=== PATIENT | female | born 1975 | race Caucasian/White ===

== ENCOUNTER → 2017-04-21 | Outpatient (CLI) | payer OTHER ==
[~2017-04-21] MED LIST: BCPILLS PO; METH4PAK4 PO; MULT-240 PO; NORG1TAB19 PO; ONDA4TAB10 SL; OXYC1TAB3 PO; TAMS0.4C38 PO
== END | disposition home or self-care (01) ==
LOC: C.PAPS 09:59
PROVIDERS: ATTEND Obstetrics & Gynecology
DX: Z12.4 Encounter for screening for malignant neoplasm of cervix (principal); R87.616 Satisfactory cervical smear but lacking transformation zone

== ENCOUNTER → 2017-05-13 | Outpatient (CLI) | payer OTHER ==
--- NOTE | 2017-05-14 13:27 | MAMMOGRAPHY REPORT ---
BILATERAL DIGITAL SCREENING MAMMOGRAM TOMOSYNTHESIS WITH CAD: 05/13/2017 CLINICAL HISTORY: Routine screening. Patient has no complaints. TECHNIQUE: Breast tomosynthesis in addition to standard 2D mammography was performed. Current study was also evaluated with a Computer Aided Detection (CAD) system. COMPARISON: No prior exams were available for comparison. BREAST COMPOSITION: There are scattered areas of fibroglandular density in both breasts. FINDINGS: There is an 8 mm lobulated equal density mass seen within the right medial breast at appro ximately 3:00, which has a possible central fat density hilum on the MLO tomosynthesis images and may represent an intramammary lymph node although spot compression tomosynthesis views and possible [place] [facility] ultrasound are recommended for further evaluation. The remainder of both breasts are negative, without suspicious masses, calcifications, or areas of ar chitectural distortion noted. IMPRESSION: ACR BI-RADS CATEGORY 0: INCOMPLETE EVALUATION: NEED ADDITIONAL IMAGING EVALUATION Right breast mass, for which additional imaging evaluation is recommended. The patient will be mckeon d to schedule an appointment. Approximately 10% of breast cancers are not detected with mammography. A negative mammographic report should not delay biopsy if a clinically suggestive mass is present. Radha Saunders M.D. ah/:05/14/2017 07:32:41 Reinforcing Bar Setter: Chelita BAILEY(Nayeli)(Amy)(JUS), [facility] letter sent: Addl Imaging 0 BI-RADS Code: ACR BI-RADS Category 0: Incomplete Evaluation: Need Additional Imaging Evaluation
== END | disposition home or self-care (01) ==
LOC: C.MAMM 12:56
PROVIDERS: ATTEND Obstetrics & Gynecology
DX: Z12.31 Encounter for screening mammogram for malignant neoplasm of breast (principal); N63 Unspecified lump in breast

== ENCOUNTER → 2017-05-24 | Outpatient (CLI) | payer OTHER ==
--- NOTE | 2017-05-24 13:16 | MAMMOGRAPHY REPORT ---
UNILATERAL RIGHT DIGITAL DIAGNOSTIC MAMMOGRAM TOMOSYNTHESIS AND TARGETED RIGHT ULTRASOUND: 05/24/2017 CLINICAL HISTORY: 42 year-old woman called back from baseline screening mammogram for a lobulated mas s in the lower inner quadrant of the right breast. No family history of breast cancer. TECHNIQUE: Spot compression CC and MLO 2-D digital and tomosynthesis images were obtained. COMPARISON: Comparison is made to exam dated: 05/13/2017 mammogram - [facility]. BREAST COMPOSITION: There are scattered areas of fibroglandular density in the right breast. FINDINGS: Additional spot compression views of the right lower inner quadrant and corresponding myrtle synthesis images demonstrate persistence of a non-circumscribed 6.1 x 6.6 x 5.9 mm mass in the lower inner middle one third of the right breast. No associated calcification or architectural distortion. Further evaluation with ultrasound was performed. Real-time high-resolution ultrasound was performed throughout the right lower inner quadrant includin g the 7:00 axis. However, no discrete solid or cystic mass was identified. IMPRESSION: ACR BI-RADS CATEGORY 4B: INTERMEDIATE SUSPICION FOR MALIGNANCY, TARGETED ULTRASOUND ACR BI-RADS CATEGORY 4B: INTERMEDIATE SUSPICION FOR MALIGNANCY There is a persistent non-circumscribed 6.6 mm mass in the right lower inner quadrant, without sonogr aphic correlate identified. This mass remains indeterminate and definitive characterization with [facility] guided biopsy is recommended. These results and recommendations were discussed with the patient at the time of the exam. She tenta tively scheduled the right breast stereotactic biopsy prior to leaving our department. Approximately 10% of breast cancers are not detected with mammography. A negative mammographic report should not delay biopsy if a clinically suggestive mass is present. Jaye Middleton M.D. ay/:05/24/2017 12:14:29 Emergency Medicine Physician Assistant: Vangie BAILEY(Nayeli)(Amy), [facility] letter sent: Abnormal 4/5 BI-RADS Code: ACR BI-RADS Category 4B: Intermediate Suspicion For Malignancy Ultrasound BI-RADS: ACR BI-RADS Category 4B: Intermediate Suspicion For Malignancy
== END | disposition home or self-care (01) ==
LOC: C.MAMM 10:55
PROVIDERS: ATTEND Obstetrics & Gynecology
DX: N63 Unspecified lump in breast (principal)

== ENCOUNTER → 2017-06-03 | Outpatient (CLI) | payer OTHER ==
--- NOTE | 2017-06-03 13:21 | Discharge Instructions ---
Discharge Instructions Procedure Procedure Date: Jun 03, 2017. Reason for visit: Right Mass. Discharge Discharge Date: Jun 03, 2017. Discharge Diagnosis: status post breast biopsy Instructions Activity Recommendations: Additional Limitations (see below) Return to School/Work: no limitations Recommended Home Diet: No Limitations Provider Instructions: ACTIVITY RECOMMENDATIONS: * No lifting, pushing, pulling or exercising the affected side for three days. RETURN TO SCHOOL/WORK: * You may return to work/school after the procedure, but do not perform any strenuous activities for 24 to 48 hours. MEDICATIONS: * Tylenol (two 325 mg) every four to six hours if needed for mild pain (if not allergic to Tylenol). DIET: * Resume previous diet. SPECIAL CARE INSTRUCTIONS: * Keep biopsy site dry for 24 hours. May shower after 24 hours, but do not soak (bathe) incision. * May remove Tegaderm (plastic patch) tomorrow AFTER showering. * Leave the steri-strips on for one week. Allow the steri-strips to fall off by themselves. If not off after one week, you may remove them. You may place a Bandaid crosswise over the strips, if desired. * Apply ice 10 minutes on and 10 minutes off as needed. * Wear a bra at bedtime to sleep more comfortably for 2-3 days. * Your referring physician should have the results after approximately 5 to 7 business days. * Call for unusual bleeding, fever, drainage, etc or if you have any questions call during normal business hours or after hours call Dr Saunders, . FOLLOW UP VISIT: Follow-up with Referring Physician as scheduled. Allergies Coded Allergies: No Known Allergies (Verified , 11/12/11) Mini Dave Recommendations: Call your doctor if: * Temperature above 101 degrees * Pain not relieved by pain medicine ordered * There is increased drainage or redness from any incision * You have any unanswered questions or concerns. Your Doctors Instructions noted above were prepared by provider Radha Saunders. Patient Signature Section: Patient Instructions Signature Page Razia Graves Patient (or Guardian) Signature/Date: I have read and understand the instructions given to me by my caregivers. Caregiver/RN/Doctor Signature/Date: The above-named patient and/or guardian has received patient instructions on this date. + Original Patient Signature Page (only) stays with chart. Please make copy for patient.
--- NOTE | 2017-06-03 16:19 | MAMMOGRAPHY REPORT ---
UNILATERAL RIGHT DIGITAL DIAGNOSTIC MAMMOGRAM TOMOSYNTHESIS: 06/03/2017 CLINICAL HISTORY: Status post right breast stereotactic biopsy. TECHNIQUE: Breast tomosynthesis in addition to standard 2D mammography was performed. A preprocedur al right CC 2-D view was obtained. Postprocedural right CC and ML tomosynthesis images including C v iews were obtained. COMPARISON: Comparison is made to exams dated: 06/03/2017 stereotactic biopsy, 05/24/2017 mammogram, ultrasound, and 05/13/2017 mammogram - [facility]. BREAST COMPOSITION: There are scattered areas of fibroglandular density in the right breast. FINDINGS: A preprocedural right cc view was obtained for biopsy planning purposes. Postprocedural i mages demonstrate a new biopsy marker clip in the expected location of the biopsied mass in the right lower inner quadrant. No significant postbiopsy hematoma is seen. IMPRESSION: POST PROCEDURE IMAGING FOR MARKER PLACEMENT New biopsy marker clip status post stereotactic biopsy of right lower inner quadrant breast mass. Pa thology results are pending. Pending benign pathology results, recommend follow-up diagnostic tomosy nthesis mammograms of the right breast in 6 months. Approximately 10% of breast cancers are not detected with mammography. A negative mammographic report should not delay biopsy if a clinically suggestive mass is present. Radha Saunders M.D. ah/:06/03/2017 13:48:17 Room Manager: Marguerite LOPEZ)(Amy), [facility] BI-RADS Code: Post Procedure Imaging For Marker Placement
--- NOTE | 2017-06-07 09:13 | MAMMOGRAPHY REPORT ---
THIS REPORT HAS BEEN AMENDED. STEREOTACTIC GUIDED BIOPSY RIGHT BREAST: 06/03/2017 CLINICAL HISTORY: Indeterminate mass in the right lower inner quadrant. PATIENT CONSENT: The procedure, risks, benefits, and alternatives of stereotactic biopsy with clip pl acement were discussed with the patient, and verbal and written consent was obtained. A timeout was performed immediately prior to the procedure. PROCEDURE DESCRIPTION: With stereotactic guidance, aseptic technique, and lidocaine as a local anesth etic (1% lidocaine to anesthetize the skin and 1% lidocaine with epinephrine to anesthetize the deepe r tissues), the mass of concern in the right lower inner quadrant was sampled multiple times with a 9 -gauge vacuum-assisted biopsy needle ([employer]). The path of approach was caudocranial. A metall ic marker clip was placed at the biopsy site. This was confirmed on postprocedure mammograms. Direc t pressure was applied at the biopsy site and hemostasis was readily achieved. The patient tolerated the procedure without complication. She was given wound care instructions. COMPARISON: Comparison is made to exams dated: 05/24/2017 mammogram, 05/24/2017 ultrasound, and 017 mammogram - [facility]. IMPRESSION: STEREOTACTIC GUIDED BIOPSY Stereotactic biopsy of right lower inner quadrant breast mass, with clip placement. The patient will receive pathology results from her referring provider. Pending benign pathology results, recommend follow-up diagnostic tomosynthesis mammograms of the right breast in 6 months. Radha Saunders M.D. ah/:06/03/2017 13:23:15 Security Officer: Marguerite BAILEY(Nayeli)(Amy), [facility] AMENDMENT: 06/09/2017 Radha Saunders M.D. The pathology from right breast stereotactic biopsy was reviewed on 06/09/2017. The pathology shows f ibrocystic change, which is concordant with the imaging findings. Recommend follow-up diagnostic lillian osynthesis mammograms of the right breast in 6 months.
== END | disposition home or self-care (01) ==
LOC: C.MAMM 12:45
PROVIDERS: ATTEND Obstetrics & Gynecology
DX: N63 Unspecified lump in breast (principal)

== ENCOUNTER 2017-07-29 05:22 | Emergency (ER) | payer OTHER ==
[~2017-07-29] VITALS: Ht 172.7 cm; Wt 115.4 kg
[~2017-07-29 05:22] MED LIST changes: -NORG1TAB19 PO; -ONDA4TAB10 SL; -OXYC1TAB3 PO; -TAMS0.4C38 PO
[2017-07-29 05:23] VITALS: TEMP 36.6; Ht 172.7 cm; Wt 115.4 kg
[2017-07-29] MEDS ORDERED: ONDANSETRON INJ 2 MG/ML 2 ML VIAL IV STA ×2 (05:37→08:29)
[2017-07-29] MEDS ORDERED: SODIUM CHLORIDE 0.9% 1000ML 1,000 ML IV STA (05:37)
[2017-07-29] MEDS ORDERED: MoRPHine SULFATE 10 MG/ML CARP/VIAL IV STA (05:37)
[2017-07-29] MEDS ORDERED: NORG1TAB19 PO (06:01)
[2017-07-29 06:05] LABS: BASO % 0.5 %; BASO ABS # 0.05 K/uL (0-0.2); COMPLETE YES; EOS % 1.1 %; HEMATOCRIT 39.1 % (37-47); IG% 0.3 %; LYMPH % 27.6 %; LYMPH ABS # 2.61 K/uL (1.2-3.4); MEAN CELL VOLUME 87.3 fL (80-100); MEAN CORPUSCULAR HEMOGLOBIN 29.7 pg (25-34); MEAN PLATELET VOLUME 11.6 fL (7.4-10.4); MONO % 7.3 %; NEUT % 63.2 %; PLATELET COUNT 223 K/uL (130-400); RED BLOOD COUNT 4.48 M/uL (4.2-5.4); WHITE BLOOD COUNT 9.47 K/uL (4.8-10.8)
--- NOTE | 2017-07-29 06:07 | EMERGENCY ROOM VISIT NOTE ---
History First contact with patient: 05:28 Chief Complaint: FLANK PAIN Stated Complaint: PAIN IN ABD AND BACK, VOMITING History of Present Illness The patient is a 42 year old female who presents to the Emergency Room with complaints of flank pain and vomiting. The patient states that she developed pain in her left flank with radiation into the left lower abdomen which woke her up from sleep 2 hours ago. The pain is severe and she rates it an 8/10. She has had multiple episodes of vomiting. She denies any urinary symptoms. She denies any history of kidney stones. She did not take any medication at home for her symptoms. Review of Systems A complete 10 point review of systems was reviewed with the patient with pertinent positives and negatives as per history of present illness. All else were negative. Social History Smoking Status: Never Smoker Alcohol Use: occasionally Drug Use: none Marital Status: Housing Status: lives with family Occupation Status: employed Current/Historical Medications Scheduled Norgestimate-Ethinyl Estradiol (Tri-Linyah), 1 TAB PO DAILY Ondasetron Odt (Zofran Odt), 4 MG SL Q6H Tamsulosin Hcl (Flomax), 0.4 MG PO DAILY Scheduled PRN Oxycodone Ir (Roxicodone Ir), 1-2 TAB PO Q4H PRN for Pain Physical Exam Vital Signs Date Time Temp Pulse Resp B/P (MAP) Pulse Ox O2 Delivery O2 Flow Rate FiO2 07/29/17 08:30 62 16 111/73 99 07/29/17 07:55 62 16 111/73 99 Room Air 07/29/17 06:52 63 18 157/105 99 Room Air 07/29/17 06:18 50 18 154/72 99 Room Air 07/29/17 05:23 36.6 79 18 141/78 99 Room Air Physical Exam VITALS: Vitals are noted on the nurse's note and reviewed by myself. Vital signs stable. GENERAL: This is a 42-year-old female, in no acute distress, nondiaphoretic, well-developed well-nourished. SKIN: No rashes noted. HEENT: Normocephalic. PERRLA. Mucous membranes moist. HEART: Regular rate and rhythm without murmurs gallops or rubs. LUNGS: Clear to auscultation bilaterally without wheezes, rales or rhonchi. ABDOMEN: Positive bowel sounds x 4. Tenderness to palpation in the left lower quadrant. Positive left CVA tenderness. No guarding or rebound tenderness. NEURO: Patient was alert and oriented to person place and time. Medical Decision & Procedures ER Provider Diagnostic Interpretation: ABDOMEN AND PELVIS CT WITHOUT CONTRAST FINDINGS: The lung bases are clear. Tiny fat-containing umbilical hernia. The unenhanced liver, gallbladder, pancreas, adrenal glands, spleen, and right kidney are unremarkable. There is a 3 mm stone within the left kidney. Mild left hydronephrosis secondary to an obstructing 3 mm stone within the distal left ureter on image 170. The bladder is decompressed. The uterus and bilateral ovaries are unremarkable. Suboptimal evaluation for bowel pathology due to the lack of intravenous and oral contrast. However, there is no definite bowel wall thickening or obstruction. A few sigmoid diverticula. Normal appendix. IMPRESSION: 1. A 3 mm obstructing stone within the distal left ureter resulting in mild left hydronephrosis. 2. Left-sided nephrolithiasis. Laboratory Results 07/29/17 05:53 Red Blood Count 4.48, Mean Corpuscular Volume 87.3, Mean Corpuscular Hemoglobin 29.7, Mean Corpuscular Hemoglobin Concent 34.0, Mean Platelet Volume 11.6, Neutrophils (%) (Auto) 63.2, Lymphocytes (%) (Auto) 27.6, Monocytes (%) (Auto) 7.3, Eosinophils (%) (Auto) 1.1, Basophils (%) (Auto) 0.5, Neutrophils # (Auto) 5.99, Lymphocytes # (Auto) 2.61, Monocytes # (Auto) 0.69, Eosinophils # (Auto) 0.10, Basophils # (Auto) 0.05 07/29/17 05:53 Test 07/29/17 05:53 07/29/17 08:20 White Blood Count 9.47 K/uL (4.8-10.8) Red Blood Count 4.48 M/uL (4.2-5.4) Hemoglobin 13.3 g/dL (12.0-16.0) Hematocrit 39.1 % (37-47) Mean Corpuscular Volume 87.3 fL (80-100) Mean Corpuscular Hemoglobin 29.7 pg (25-34) Mean Corpuscular Hemoglobin Concent 34.0 g/dl (32-36) Platelet Count 223 K/uL (130-400) Mean Platelet Volume 11.6 fL (7.4-10.4) Neutrophils (%) (Auto) 63.2 % Lymphocytes (%) (Auto) 27.6 % Monocytes (%) (Auto) 7.3 % Eosinophils (%) (Auto) 1.1 % Basophils (%) (Auto) 0.5 % Neutrophils # (Auto) 5.99 K/uL (1.4-6.5) Lymphocytes # (Auto) 2.61 K/uL (1.2-3.4) Monocytes # (Auto) 0.69 K/uL (0.11-0.59) Eosinophils # (Auto) 0.10 K/uL (0-0.5) Basophils # (Auto) 0.05 K/uL (0-0.2) RDW Standard Deviation 42.4 fL (36.4-46.3) RDW Coefficient of Variation 13.2 % (11.5-14.5) Immature Granulocyte % (Auto) 0.3 % Immature Granulocyte # (Auto) 0.03 K/uL (0.00-0.02) Anion Gap 7.0 mmol/L (3-11) Est Creatinine Clear Calc Drug Dose 90.7 ml/min Estimated GFR () 72.7 Estimated GFR (Non- 62.8 BUN/Creatinine Ratio 13.8 (10-20) Calcium Level 8.4 mg/dl (8.5-10.1) Total Bilirubin 0.3 mg/dl (0.2-1) Aspartate Amino Transf (AST/SGOT) 11 U/L (15-37) Alanine Aminotransferase (ALT/SGPT) 23 U/L (12-78) Alkaline Phosphatase 74 U/L (45-117) Total Protein 7.3 gm/dl (6.4-8.2) Albumin 3.4 gm/dl (3.4-5.0) Globulin 3.9 gm/dl (2.5-4.0) Albumin/Globulin Ratio 0.9 (0.9-2) Urine Color YELLOW Urine Appearance CLEAR (CLEAR) Urine pH 6.5 (4.5-7.5) Urine Specific [place] 1.023 (1.000-1.030) Urine Protein NEG (NEG) Urine Glucose (UA) NEG (NEG) Urine Ketones NEG (NEG) Urine Occult Blood TRACE (NEG) Urine Nitrite NEG (NEG) Urine Bilirubin NEG (NEG) Urine Urobilinogen NEG (NEG) Urine Leukocyte Esterase NEG (NEG) Urine WBC (Auto) 1-5 /hpf (0-5) Urine RBC (Auto) 5-10 /hpf (0-4) Urine Hyaline Casts (Auto) 1-5 /lpf (0-5) Urine Epithelial Cells (Auto) >30 /lpf (0-5) Urine Bacteria (Auto) 1+ (NEG) Urine Test NEG (NEG) Medications Administered Medications (Trade) Dose Ordered Sig/Angelia Route Start Time Stop Time Status Last Admin Dose Admin Sodium Chloride 1,000 ml @ 999 mls/hr Q1H1M STAT IV 07/29/17 05:37 07/29/17 06:37 DC 07/29/17 05:58 999 MLS/HR Ondansetron HCl (Zofran Inj) 4 mg NOW STAT IV 07/29/17 05:37 07/29/17 05:39 DC 07/29/17 05:57 4 MG Morphine Sulfate (MoRPHine SULFATE INJ) 8 mg NOW STAT IV 07/29/17 05:37 07/29/17 05:39 DC 07/29/17 05:57 8 MG Ketorolac Tromethamine (Toradol Inj) 30 mg NOW STAT IV 07/29/17 06:46 07/29/17 06:47 DC 07/29/17 06:52 30 MG Tamsulosin HCl (Flomax Cap) 0.4 mg STK-MED ONCE .ROUTE 07/29/17 07:11 07/29/17 07:12 DC 07/29/17 07:13 0.4 MG Hydromorphone HCl (Dilaudid Inj) 0.5 mg NOW STAT IV 07/29/17 07:27 07/29/17 07:28 DC 07/29/17 07:39 0.5 MG Ondansetron HCl (Zofran Inj) 4 mg STK-MED ONCE .ROUTE 07/29/17 07:44 07/29/17 07:45 DC 07/29/17 07:49 4 MG ED Course The patient was evaluated as above. Labs were drawn and IV access was obtained. Patient was medicated with 1 L normal saline solution, 4 mg Zofran IV and [address] of the abdomen and pelvis was performed and read by radiology as above. Patient was reevaluated and was having continued pain. She was given 30 g Toradol IV. Patient was reassessed and reports her pain is now a 5/10. She was given 0.5 mg Dilaudid and an additional 4 mg Zofran for continued nausea. Patient was reassessed and felt much better. She is ready for discharge. Discharge instructions were reviewed with the patient. The patient verbalized understanding of my assessment and treatment plan and was discharged home in good condition. Medical Decision Differential diagnosis includes kidney stone, pyelonephritis, cholecystitis, appendicitis, among others. The patient is a 42-year-old female who presents today complaining of sudden onset of left flank pain and vomiting. Labs revealed no leukocytosis or concerning electrolyte abnormalities. Creatinine was within normal limits. Urinalysis was not suggestive of infection. CT showed a 3 mm stone at the left UVJ. Urine was negative. Patient was treated with multiple rounds of IV medications with relief of her symptoms. She will be discharged home to follow up with urology. She was given prescriptions of OxyIR, Zofran and Flomax. Based on the patient's presentation and work up, I feel the patient is stable for outpatient treatment. The patient was educated to return to the emergency department for any worsening of their current condition or new/concerning symptoms. She will follow up with urology. [facility] Drug Monitoring Program Search Results: patient reviewed within database Medication Reconcilliation Current Medication List: was personally reviewed by me Blood Pressure Screening Patient's blood pressure: Elevated blood pressure Blood pressure disposition: Elevated BP felt to be situational Impression Primary Impression: Left ureteral calculus Departure Information Dispostion Home / Self-Care Condition GOOD Prescriptions Tamsulosin Hcl (FLOMAX) 0.4 Mg Cap 0.4 MG PO DAILY for 7 Days, #7 CAP Prov: Silvana Pittman PA-C 07/29/17 Ondasetron Odt (ZOFRAN ODT) 4 Mg Tab 4 MG SL Q6H for Nausea, #15 TAB Prov: Silvana Pittman PA-C 07/29/17 Oxycodone Ir (Roxicodone Ir) 5 Mg Tab 1-2 TAB PO Q4H Y for Pain, #24 TAB For Initial Treatment Prov: Silvana Pittman PA-C 07/29/17 Referrals No Doctor, Assigned (PCP) Yanet Irwin MD Patient Instructions ED Stone Renal W Colic, My [facility] Additional Instructions You have been treated in the Emergency Department today for a Kidney Stone ( Nephrolithiasis). You have received pain medicine in the emergency department which impairs your ability to operate a vehicle. It is illegal for you to drive after receiving these medicines. You have been prescribed OxyIR to be used for pain control. This is a narcotic medication. You cannot drive or consume alcohol while on this medicine. This medicine should only be used for pain that cannot be controlled with over-the- counter pain medicines. You have been prescribed Zofran to be used for any nausea or vomiting. Take as prescribed. You have been prescribed Flomax 0.4 mg to be taken ONCE daily. This medicine has been prescribed as it can help relax the smooth muscles of the urinary tract increasing transit time of the kidney stone. For pain control, you can use the following [id number] medicines (if >12 yo): - Regular strength (325mg/tab) Tylenol (acetaminophen) 2 tabs every 4-6 hours as needed. Do not exceed 12 tablets in a 24 hour period. Avoid taking more than 4 grams (4000 mg) of Tylenol per day. This includes any other sources of acetaminophen you may take on a regular basis. - Regular strength (200 mg/tab) Advil (ibuprofen) 1-2 tabs every 4-6 hours as needed. Do not exceed a dose of 3200 mg per day. You have been provided a strainer and specimen collection cup. You should strain your urine to collect any passed stones. Your stones can be placed into the specimen cup and taken to your Urologist for further evaluation. You have been provided the contact information for the on-call Urologist. You should contact the Urologist's office tomorrow to establish a follow-up appointment from today's Emergency Department visit. Return to the Emergency Department if your symptoms persist despite the treatment plan outlined above or if you develop the following symptoms: intractable pain, fever, chills, or large amounts of blood in your urine.
[2017-07-29 06:28] LABS: BUN/CREATININE RATIO 13.8 (10-20); CALCIUM 8.4 mg/dl (8.5-10.1); CREATININE 1.1 mg/dl (0.60-1.20); POTASSIUM 3.4 mmol/L (3.5-5.1)
[2017-07-29 06:31] LABS: ALB/GLOB RATIO 0.9 (0.9-2)
[2017-07-29] MEDS ORDERED: KETOROLAC TROMETHAMINE 30 MG/ML VIAL IV STA (06:46)
--- NOTE | 2017-07-29 07:08 | DIAGNOSTIC IMAGING REPORT ---
ABDOMEN AND PELVIS CT WITHOUT CONTRAST CT DOSE: 1763.22 mGy.cm HISTORY: left flank pain TECHNIQUE: Multiaxial CT images of the abdomen and pelvis were performed without the use of intravenous and oral contrast according to the standard department stone protocol. A dose lowering technique was utilized adhering to the principles of ALARA. COMPARISON STUDY: None. FINDINGS: The lung bases are clear. Tiny fat-containing umbilical hernia. The unenhanced liver, gallbladder, pancreas, adrenal glands, spleen, and right kidney are unremarkable. There is a 3 mm stone within the left kidney. Mild left hydronephrosis secondary to an obstructing 3 mm stone within the distal left ureter on image 170. The bladder is decompressed. The uterus and bilateral ovaries are unremarkable. Suboptimal evaluation for bowel pathology due to the lack of intravenous and oral contrast. However, there is no definite bowel wall thickening or obstruction. A few sigmoid diverticula. Normal appendix. IMPRESSION: 1. A 3 mm obstructing stone within the distal left ureter resulting in mild left hydronephrosis. 2. Left-sided nephrolithiasis. Electronically signed by: Tulio Olivares M.D. 07/29/2017 7:07 AM Dictated Date/Time: 07/29/2017 7:02 AM
[2017-07-29] MEDS ORDERED: TAMSULOSIN HCL 0.4 MG CAP ONE (07:11)
[2017-07-29] MEDS ORDERED: NURSING VERBAL MED ORDER ONE ×2 (07:15→08:00)
[2017-07-29] MEDS ORDERED: HYDROmorphone INJ 0.5 MG/0.5 ML SYR IV STA (07:27)
[2017-07-29] MEDS ORDERED: ONDANSETRON INJ 2 MG/ML 2 ML VIAL ONE (07:44)
[2017-07-29] MEDS ORDERED: TAMS0.4C38 PO (07:48)
[2017-07-29] MEDS ORDERED: OXYC1TAB3 PO (07:48)
[2017-07-29] MEDS ORDERED: ONDA4TAB10 SL (07:48)
[2017-07-29 08:30] VITALS: BP 111/73; PULSE 62; O2SAT 99
[2017-07-29 08:41] LABS: URINE APPEARANCE CLEAR (CLEAR); URINE BILIRUBIN NEG (NEG); URINE COLOR YELLOW; URINE EPITHELIAL CELL AUTO >30 /lpf (0-5); URINE NITRITE NEG (NEG); URINE PH 6.5 (4.5-7.5); URINE SPECIFIC GRAVITY 1.023 (1.000-1.030); UROBILINOGEN NEG (NEG); ZZUR CULT IF INDIC CLEAN CATCH YES
[2017-07-29 08:48] LABS: MANUAL MICROSCOPIC REQUIRED? NO; REVIEW REQ? NO
== END 2017-07-29 08:38 | disposition home or self-care (01) ==
LOC: C.EDB 05:23 → C.EDA 08:38
DX: N20.2 Calculus of kidney with calculus of ureter (principal)

== ENCOUNTER → 2017-12-06 | Outpatient (CLI) | payer OTHER ==
[~2017-12-06] MED LIST changes: -BCPILLS PO; -METH4PAK4 PO; -MULT-240 PO; +NORG1TAB19 PO; +ONDA4TAB10 SL; +OXYC1TAB3 PO
--- NOTE | 2017-12-06 15:09 | MAMMOGRAPHY REPORT ---
UNILATERAL RIGHT DIGITAL DIAGNOSTIC MAMMOGRAM TOMOSYNTHESIS WITH CAD: 12/06/2017 CLINICAL HISTORY: 42-year-old woman presents for follow-up in the right breast. She is 6 months stat us post benign stereotactic biopsy of a lobulated mass in the medial breast. TECHNIQUE: Right breast tomosynthesis in addition to standard 2D mammography was performed. Current anjel payan was also evaluated with a Computer Aided Detection (CAD) system. COMPARISON: Comparison is made to exams dated: 06/03/2017 mammogram, 06/03/2017 stereotactic biopsy, 04/30 mammogram, 05/24/2017 ultrasound, and 05/13/2017 mammogram - [facility]. BREAST COMPOSITION: There are scattered areas of fibroglandular density in the right breast. FINDINGS: A metallic biopsy marker clip is identified in the lower inner middle one third of the rig ht breast in the area of previously observed lobulated 7 mm mass. The mass is no longer clearly iden tified, compatible with adequate tissue sampling, and concordant with the benign pathology results of fibrocystic change. No suspicious mass, architectural distortion or cluster of microcalcifications is seen elsewhere throughout the visualized right breast. IMPRESSION: ACR BI-RADS CATEGORY 2: BENIGN Stable postbiopsy changes in the lower inner quadrant of the right breast. There is no mammographic evidence of malignancy. Return to annual mammogram screening schedule is recommended (due April 2018). The patient has been verbally notified of the results. Approximately 10% of breast cancers are not detected with mammography. A negative mammographic report should not delay biopsy if a clinically suggestive mass is present. Jaye Middleton M.D. ay/:12/06/2017 14:19:19 [employer]iture [employer] Consultant: yMesha BAILEY(Nayeli)(Amy), [facility] letter sent: Normal 1/2 BI-RADS Code: ACR BI-RADS Category 2: Benign
== END | disposition home or self-care (01) ==
LOC: C.MAMM 13:49
PROVIDERS: ATTEND Obstetrics & Gynecology
DX: R92.8 Other abnormal and inconclusive findings on diagnostic imaging of breast (principal)

== ENCOUNTER 2018-01-21 12:30 | Emergency (ER) | payer OTHER ==
[~2018-01-21] VITALS: Ht 172.7 cm; Wt 99.0 kg
[2018-01-21 12:35] VITALS: TEMP 37.2; Ht 172.7 cm; Wt 99.0 kg
[2018-01-21] MEDS ORDERED: ALBUT/IPRATROP 3MG/0.5MG NEB 3 ML VIAL INH STA (12:57)
[2018-01-21] MEDS ORDERED: SODIUM CHLORIDE 0.9% 1000ML 1,000 ML IV STA (12:57)
[2018-01-21] MEDS ORDERED: IBUP-1050 PO (12:59)
[2018-01-21] MEDS ORDERED: BCPILLS PO (12:59)
[2018-01-21 14:03] LABS: BASO % 0.6 %; BASO ABS # 0.02 K/uL (0-0.2); EOS % 0.9 %; EOS ABS # 0.03 K/uL (0-0.5); HEMATOCRIT 38.6 % (37-47); HEMOGLOBIN 13.2 g/dL (12.0-16.0); LYMPH % 41.6 %; LYMPH ABS # 1.33 K/uL (1.2-3.4); MEAN CELL VOLUME 87.1 fL (80-100); MEAN CORPUSCULAR HEMOGLOBIN 29.8 pg (25-34); MEAN CORPUSCULAR HGB CONC 34.2 g/dl (32-36); MEAN PLATELET VOLUME 11.3 fL (7.4-10.4); MONO % 11.3 %; MONO ABS # 0.36 K/uL (0.11-0.59); NEUT % 45.6 %; NEUT ABS # 1.46 K/uL (1.4-6.5); PLATELET COUNT 172 K/uL (130-400); RED CELL DISTRIBUTION WIDTH CV 13.7 % (11.5-14.5); RED CELL DISTRIBUTION WIDTH SD 43.8 fL (36.4-46.3)
--- NOTE | 2018-01-21 14:08 | DIAGNOSTIC IMAGING REPORT ---
CHEST 2 VIEWS ROUTINE CLINICAL HISTORY: EVALUATE RESPIRATORY DISTRESS.DYSPNEA COMPARISON STUDY: No previous studies for comparison. FINDINGS: Lung volumes are diminished. No pneumothorax or pleural effusion is noted. There is no evidence for pulmonary edema. Cardiac size is within normal limits on this hypoventilatory study. There is bilateral lower lung reticulonodular interstitial thickening, greater on the left. IMPRESSION: Bilateral lower lung reticulonodular interstitial thickening, greater on the left. This could reflect atelectasis or normal vessels on this hypoventilatory study although an infectious process such as bronchiolitis is favored. Electronically signed by: Horacio Aguilar M.D. 01/21/2018 2:07 PM Dictated Date/Time: 01/21/2018 2:05 PM
[2018-01-21 14:18] LABS: CALCIUM 8.3 mg/dl (8.5-10.1); CREATININE 0.93 mg/dl (0.60-1.20); POTASSIUM 3.4 mmol/L (3.5-5.1)
[2018-01-21 15:13] LABS: INFLUENZA B ANTIGEN Neg for Influ B (NEG)
[2018-01-21] MEDS ORDERED: VNTHFA/IN INH (15:21)
[2018-01-21] MEDS ORDERED: PRED20TA2 PO (15:21)
[2018-01-21] MEDS ORDERED: BENZ100C18 PO (15:21)
[2018-01-21 15:38] VITALS: BP 103/57; PULSE 82; O2SAT 95
--- NOTE | 2018-01-21 16:56 | EMERGENCY ROOM VISIT NOTE ---
ED Visit Note First contact with patient: 12:38 Chief Complaint: I am having pneumonialike symptoms. History of Present Illness: Ms. Graves is a 42-year-old white female who ambulates into the ED complaining of a nonproductive cough, intermittent fevers and dyspnea on exertion. Historically patient reports she has no significant pulmonary diseases or surgeries. Patient reports 4 days ago she developed a mild nonproductive cough. Since that time her cough as increased in intensity and severity but remains nonproductive. She has not identified any aggravating or alleviating factors related to the cough. She has not taken any medications for her cough prior to arrival at the hospital. Associated with her cough she reports she is having a mild tightness in the chest with her cough and with ambulation. She also reports that she has been having some sinus pressure in the bifrontal area and intermittent fevers. She does report when she walked into work today from the parking lot she felt like that when she got into her work area she was panting and was having difficulty breathing. She denies chills, sweats, skin eruptions, skin color changes, headache, dizziness, lightheadedness, hearing changes, visual changes, difficulty speaking , difficulty swallowing, neck pain, back pain, palpitations, previous clots, claudication, cramping, recent surgery/activity/extended travel, tobacco and estrogen use, abdominal pain, nausea, vomiting. Review of Systems: As noted above in history of present illness. All body systems were reviewed and found to be negative as noted above. Past Medical History: Status post kidney stone removal and section 2. Current Medications: control. Allergies to Medications: Patient denies. Social History: Patient is currently employed; she feels safe in her home environment; she denies tobacco use. Physical Examination: Vital Signs: Date Time Temp Pulse Resp B/P (MAP) Pulse Ox O2 Delivery O2 Flow Rate FiO2 01/21/18 15:38 82 18 103/57 95 01/21/18 12:35 37.2 94 20 139/72 94 Room Air GENERAL: 42-year-old female in mild distress due to symptoms, nontoxic-appearing , afebrile and hemodynamically stable. NEUROLOGICAL: Awake, alert and oriented to person, place and time. Answering questions appropriately and following commands. Normal gait. Good hand eye coordination. No focal motor sensory deficits. SKIN: Warm, dry and pink. No soft tissue eruptions or trauma noted. HEENT: Atraumatic and normocephalic. No erythema or tenderness over the frontal or maxillary sinuses. PERRLA. Sclera white and conjunctiva pink. No drainage from naris, but audible congestion. Oral cavity moist and pink. Pharynx is nonerythematous or edematous. Speech normal. No lymphadenopathy. Trachea midline. No jugular venous distention. BACK: No tenderness over the bony spine. No CVA tenderness. THORAX: Lungs sounds are decreased bilaterally in the bases with a few scattered wheezing in the left lower lung base. Equal bilaterally with symmetrical chest wall movements. No rales or rhonchi. No crepitus, tenderness , subcutaneous air or deformities noted. No increased respiratory effort or rate. HEART: Regular rate and rhythm. No gallops, rubs or murmurs are appreciated. PMI was not displaced. No lives, heaves or thrills. ABDOMEN: Soft and nontender. Positive bowel sounds in all quadrants. No guarding, rigidity or organomegaly. EXTREMITIES: Moves all extremities well on command and with purpose. All distal neurovascular statuses are intact and equal bilaterally. No calf tenderness or cords. Mild dependent edema. ED Course: Patient is assessed as noted above. Patient's medication list was reviewed. Laboratory Testing: Test 01/21/18 13:30 01/21/18 13:35 01/21/18 13:47 Range/Units Urine Color YELLOW Urine Appearance CLEAR CLEAR Urine pH 5.5 4.5-7.5 Urine Specific [place] 1.017 1.000-1.030 Urine Protein NEG NEG Urine Glucose (UA) NEG NEG Urine Ketones NEG NEG Urine Occult Blood 2+ NEG Urine Nitrite NEG NEG Urine Bilirubin NEG NEG Urine Urobilinogen NEG NEG Urine Leukocyte Esterase SMALL NEG Urine WBC (Auto) 1-5 0-5 /hpf Urine RBC (Auto) 5-10 0-4 /hpf Urine Hyaline Casts (Auto) 1-5 0-5 /lpf Urine Epithelial Cells (Auto) >30 0-5 /lpf Urine Bacteria (Auto) NEG NEG Urine Test NEG NEG Influenza Type A Antigen Neg for Influ A NEG Influenza Type B Antigen Neg for Influ B NEG White Blood Count 3.20 4.8-10.8 K/uL Red Blood Count 4.43 4.2-5.4 M/uL Hemoglobin 13.2 12.0-16.0 g/dL Hematocrit 38.6 37-47 % Mean Corpuscular Volume 87.1 80-100 fL Mean Corpuscular Hemoglobin 29.8 25-34 pg Mean Corpuscular Hemoglobin Concent 34.2 32-36 g/dl Platelet Count 172 130-400 K/uL Mean Platelet Volume 11.3 7.4-10.4 fL Neutrophils (%) (Auto) 45.6 % Lymphocytes (%) (Auto) 41.6 % Monocytes (%) (Auto) 11.3 % Eosinophils (%) (Auto) 0.9 % Basophils (%) (Auto) 0.6 % Neutrophils # (Auto) 1.46 1.4-6.5 K/uL Lymphocytes # (Auto) 1.33 1.2-3.4 K/uL Monocytes # (Auto) 0.36 0.11-0.59 K/uL Eosinophils # (Auto) 0.03 0-0.5 K/uL Basophils # (Auto) 0.02 0-0.2 K/uL RDW Standard Deviation 43.8 36.4-46.3 fL RDW Coefficient of Variation 13.7 11.5-14.5 % Immature Granulocyte % (Auto) 0.0 % Immature Granulocyte # (Auto) 0.00 0.00-0.02 K/uL Sodium Level 138 136-145 mmol/L Potassium Level 3.4 3.5-5.1 mmol/L Chloride Level 106 98-107 mmol/L Carbon Dioxide Level 25 21-32 mmol/L Anion Gap 7.0 3-11 mmol/L Blood Urea Nitrogen 11 7-18 mg/dl Creatinine 0.93 0.60-1.20 mg/dl Est Creatinine Clear Calc Drug Dose 98.9 ml/min Estimated GFR () 89.1 Estimated GFR (Non- 76.9 BUN/Creatinine Ratio 11.2 10-20 Random Glucose 98 70-99 mg/dl Calcium Level 8.3 8.5-10.1 mg/dl Bedside D-Dimer 298 0-450 ng/mlFEU Bedside Troponin I < 0.030 0-0.045 ng/ml EKG: Was read by myself and shows normal sinus rhythm with a ventricular rate of 70 bpm. Normal axis, intervals and complexes. No acute ST changes indicating ischemia, injury or infarction. Medical records were reviewed and no previous were available for comparison. Chest X-Ray: Read by myself and the radiologist showing bilateral lower lobe reticulonodular interstitial thickening greater on the left. Possible causes is atelectasis, normal vessels on hypoventilatory study, or bronchitis. Patient was hydrated with normal saline and received an albuterol/Atrovent nebulizer breathing treatment. Patient was reassessed multiple times during her stay in the emergency department. Patient was educated about today's findings and instructed on her treatment plan ; she verbalized understanding and agreement with this plan. Clinical Impression: Acute bronchitis. Decision-Making: Initially my differential diagnosis I considered pneumonia, bronchitis, influenza, pulmonary edema, pulmonary embolism, acute coronary syndrome and other causes. Disposition: Patient discharged home in stable condition; prior to departure she was reassessed and subjectively reported she was feeling much better. Plan: Patient was encouraged alternate ibuprofen or Tylenol every 3 hours as needed for chest pain or fevers. Patient was prescribed an albuterol inhaler and instructed on its use with spacer. Patient was prescribed prednisone once a day for 5 days. Patient was prescribed Tessalon Perles for cough every 8 hours. Patient is encouraged to follow-up with primary care provider in 4-5 days. Patient was encouraged to return the ED for worsening symptoms, uncontrolled fevers, coughing up blood, uncontrolled shortness of breath/wheezing or any new/ concerning symptoms.
== END 2018-01-21 15:39 | disposition home or self-care (01) ==
LOC: C.EDB 12:31 → C.EDC 15:39
DX: J20.9 Acute bronchitis, unspecified (principal); Z87.442 Personal history of urinary calculi; Z79.3 Long term (current) use of hormonal contraceptives